=== PATIENT | male | born 1940 | race Caucasian/White ===

== ENCOUNTER 2018-03-22 14:54 | Inpatient (IN) | payer MEDICARE, OTHER ==
[~2018-03-22] VITALS: Ht 177.8 cm; Wt 85.8 kg
--- NOTE | ~2018-03-22 | HP ---
PATIENT: RUKHSANA JO MEDICAL RECORD: [id number] ACCOUNT: [id number] LOCATION:[address] : 42 ADMISSION DATE: 03/22/18 HISTORY AND PHYSICAL EXAMINATION REASON FOR ADMISSION: Cough, shortness of breath. HISTORY OF PRESENT ILLNESS: The patient is a 77-year-old male who was diagnosed in 1999 by [facility] with pulmonary sarcoidosis. 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 He has chronic respiratory failure, on chronic oxygen via TTO. He is followed by Dr. Stephens at [facility]. He states that when he walks on a good day, off oxygen, he will desaturate to 60%. On his oxygen at rest, it usually runs in the low 90s to 95%. His said he started coughing last night, dry cough. He stayed up all night coughing and was more short of breath today. They have an O2 sat monitor and did not see sat getting over 80%. He came to the office for that reason. He denied fever or productive sputum of off color nature. Interestingly, his had a URI this week and has been treated for asthmatic bronchitis. 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 Echo in 2016 showed an EF of 55% and left atrial size was 3.9 cm. History of gout and thrombocytopenia due to hypersplenism. History of proteinuria. 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 ALLERGIES: ADHESIVE TAPE AND ZITHROMAX. FAMILY HISTORY: Positive for hypertension. SOCIAL HISTORY: Lifelong nonsmoker, although he is exposed to his father who smoked. MEDICATIONS: Tamsulosin 0.4 mg p.o. at bedtime, Norvasc 5 mg p.o. daily, atenolol 50 mg p.o. daily, fenofibrate 145 mg p.o. daily, Xanax 0.25 mg p.o. at bedtime, Effexor XR 150 mg p.o. daily, omeprazole 20 mg p.o. b.i.d., vitamin D 2000 units p.o. daily, home O2 at 3-4 liters. REVIEW OF SYSTEMS: GENERAL: Chronic fatigue, worse in last 24 hours. No documented fever. HEENT: No recent new visual change, sinus congestion, or sore throat. RESPIRATORY: He has had dry cough throughout the night, was very difficult for him to sleep. He has been more dyspneic and sats have been in the 70s with ambulating and up to 80% in the office on 4 liters. He said he has chronic sputum production, which is clear and not changed. No hemoptysis. CARDIAC: No recent palpitations, exertional chest pain. He has chronic exertional dyspnea. No increased lower extremity edema. GI: No nausea, vomiting, change in stools, or blood per rectum. : Nocturia once nightly with slow stream. HISTORY AND PHYSICAL [id number] RUKHSANA JO ENDOCRINE: Denies polyuria, polydipsia, heat or cold intolerance. NEURO: No history of stroke, TIA, or vascular headaches. INTEGUMENT: No rash or itching. PSYCHIATRIC: Admits to depressed mood but is not suicidal or had suicidal ideations. LAB: Blood gas with pH of 7.428, CO2 of 38, pO2 of 90 on 36% FiO2 on a T-tube. Chemistry shows normal electrolytes. BUN and creatinine are 27 and 1.8, which is his chronic creatinine. Glucose 118 nonfasting. Calcium 9.4. CBC is currently pending. Chest x-ray shows bibasilar interstitial densities in the lower lobes with honeycombing, consistent with severe pulmonary fibrosis, COPD changes, and mediastinal granulomata. ASSESSMENT: 1. Community-acquired pneumonia, now febrile. 2. Chronic hypoxemia with pulmonary sarcoid and interstitial lung disease. 3. History of hyperparathyroidism, resolved. 4. Hypertension. 5. GERD. 6. History of depression. 7. BPH. 8. Renal stones. 9. Gout. 10. Osteoarthritis. 11. Anxiety. 12. Remote thrombocytopenia. 13. Squamous cell carcinoma of the ear. PLAN: The patient is admitted for pulmonary updrafts, broad-spectrum IV antibiotics. Culture blood and urine. Pulmonary consult with Dr. Frye, whom I have spoken to. TRANSINT:[id number] Voice Confirmation ID: [id number] DOCUMENT ID: [id number] SVEN PARRISH MD at 0730 CC: [id number] DICTATION DATE: 03/22/18 172 [address] CARRIER: 03/22/18 1829 ADM IN [place] [id number] [place] [id number]
--- NOTE | ~2018-03-22 | CN ---
PATIENT NAME:RUKHSANA MONTERO MEDICAL RECORD: [id number] : 42 LOCATION:[address] ADMIT DATE: 03/22/18 ACCOUNT: [id number] CONSULTING PHYSICIAN: KATTY MONTE MD REFERRING PHYSICIAN: TOÑO CRONIN MD DATE OF CONSULTATION: 03/22/2018 CONSULT REQUESTING PHYSICIAN: Toño Cronin MD REASON FOR CONSULTATION: Sarcoidosis, elqrl-iz-eoldnad hypoxic respiratory failure. HISTORY OF PRESENT ILLNESS: Mr. Montero is a 77-year-old very pleasant gentleman who has a history of sarcoidosis, diagnosed by the lung biopsy in 2001. The patient had tried some disease modifying agent initially and he was on prednisone for almost 10 years. He is followed at [facility]. According to the patient, he woke up yesterday with hoarseness, coughing, wheezing, and shortness of breath. He was seen at Dr. Cronin's office and his pulse ox was 75. He has tracheal catheter in place. He is also having some hoarseness. He has shortness of breath with mild exertion. REVIEW OF THE SYSTEMS: HEENT: Sinus congestion and hoarseness. RESPIRATORY: As in history of present illness. CARDIOVASCULAR: Negative. GI: Negative. : Negative. Other review of the systems is negative. PAST MEDICAL HISTORY: 1. Sarcoidosis diagnosed in 2001. 2. Pulmonary fibrosis. 3. Pulmonary hypertension secondary to pulmonary fibrosis. 4. Hyperparathyroidism. 5. History of hypercalcemia. 6. History of kidney stones. PAST SURGICAL HISTORY: 1. Parathyroidectomy. 2. Trach catheter placement. 3. History of open lung biopsy. ALLERGIES: HE IS ALLERGIC TO ZITHROMAX. MEDICATIONS: [employer] is reviewed. PERSONAL AND SOCIAL HISTORY: The patient is and living with his . He is retired from [employer]. He is nonsmoker, nondrinker. FAMILY HISTORY: Noncontributory. PHYSICAL EXAMINATION: GENERAL: Now, the patient is lying comfortably in bed. He is not in acute distress. CONSULT REPORT [id number] RUKHSANA MONTERO VITAL SIGNS: The blood pressure is 142/74, pulse is 74, respirations 16, temperature is 101.5, SpO2 is 97% on 4 liters nasal cannula. HEENT: Conjunctivae are pink. Sclerae are not icteric. NECK: Neck is supple. No JVD. CHEST: The chest excursion is minimal on both sides. There are wheezes on forceful expiration and bilateral crackles. HEART: Rhythm regular. Normal sound. No murmur. ABDOMEN: Abdomen is soft. Bowel sounds present. No hepatosplenomegaly. RECTAL: Deferred. EXTREMITIES: No cyanosis. No clubbing. No pedal edema. SKIN: The skin is warm. Normal turgor. CENTRAL NERVOUS SYSTEM: The patient is awake and alert. There is no obvious intracranial abnormality. The gait was not tested. Chest radiograph with increased interstitial marking bilaterally, especially in the lower lobe. There are also emphysematous changes. There are also extensive granulomatous changes throughout mediastinum and alcon. LAB DATA: CBC; WBC 10.5, hemoglobin 13.6, hematocrit 40.6, and platelet count 134. Chemistry; sodium 136, potassium 4.4, BUN is 27, creatinine 1.8. ABG; the pH is 7.42, pCO2 is 38.3, pO2 is 90, bicarb is 24.3. IMPRESSION: 1. Lhxws-ec-vypmbwk hypoxic respiratory failure. 2. Tracheobronchitis, possible pneumonia, consistent with CAP. 3. Stage IV sarcoidosis with pulmonary fibrosis. 4. Pulmonary hypertension group 3. 5. Laryngitis. 6. Chronic kidney disease. 7. History of parathyroidism, status post parathyroidectomy. RECOMMENDATION: 1. Continue vancomycin and meropenem. 2. Start on methylprednisolone IV stress dose as well as for wheezing and reactive airway disease. 3. Continue albuterol/ipratropium nebulizer. 4. I will add Brovana and budesonide nebulizer. 5. Supplemental oxygen to keep the SpO2 above 90. 6. Followup labs and chest radiograph. Dr. Cronin, thank you for involving me in the care of Mr. Montero. TRANSINT:[id number] Voice Confirmation ID: [id number] DOCUMENT ID: [id number] KATTY MONTE MD at 1208 CC: TOÑO CRONIN [id number] DICTATION DATE: 03/22/181846 LABORATORY CHEMICAL ASSISTANT: 03/22/181958 DIS IN 03/28/18 [facility] [address] [facility] [place] [address]
[2018-03-22 15:39] VITALS: BP 142/74; BMI 27.8
[2018-03-22] MEDS ORDERED: EFFEXOR XR150 MG PO (15:57)
[2018-03-22] MEDS ORDERED: FLOMAX0.4 MG PO (15:58)
[2018-03-22] MEDS ORDERED: TENORMIN50 MG PO (15:58)
[2018-03-22] MEDS ORDERED: XANAX0.25 MG PO (16:00)
[2018-03-22] MEDS ORDERED: TRICOR145 MG PO (16:01)
[2018-03-22] MEDS ORDERED: NORVASC5 MG PO (16:04)
[2018-03-22] MEDS ORDERED: OMEPRAZOLE PO (16:06)
[2018-03-22 16:15] VITALS: BP 142/74
[2018-03-22 16:49] LABS: BASOPHILS 0.3 % (0-2); EOSINOPHILS 3.2 % (0-7); HEMATOCRIT 40.6 % (42.0-54.0); HEMOGLOBIN 13.6 g/dL (13.5-17.5); IMMATURE GRANULOCYTES 0.8 % (0-5); LYMPHOCYTES 12.3 % (15-50); MCH 28.1 pg (26.0-34.0); MCHC 33.5 g/dL (31.0-37.0); MCV 83.9 fL (80.0-100.0); MEAN PLATELET VOLUME 9.3 fL (7.4-10.4); MONOCYTES 11.1 % (2-11); NEUTROPHILS 72.3 % (40-80); PLATELET COUNT 134 10x3/uL (130-400); RBC 4.84 10x6/uL (4.20-6.10); RDW 14.9 % (11.5-14.5); WBC 10.5 10x3/uL (4.8-10.8)
[2018-03-22 17:10] LABS: ANION GAP 13.8 mmol/L (8-16); CALCIUM 9.4 mg/dL (8.5-10.1); CARBON DIOXIDE 24.6 mmol/L (21.0-32.0); CREATININE - SERUM 1.8 mg/dL (0.6-1.3); POTASSIUM - SERUM 4.4 mmol/L (3.5-5.1)
[2018-03-22 18:42] LABS: APPEARANCE CLEAR (CLEAR); BILIRUBIN NEGATIVE (NEGATIVE); COLOR YELLOW (YELLOW); GLUCOSE NEGATIVE (NEGATIVE); KETONE NEGATIVE (NEGATIVE); NITRITE NEGATIVE (NEGATIVE); PROTEIN TRACE mg/dL (NEGATIVE); UROBILINOGEN NORMAL (NORMAL)
[2018-03-22 20:00] VITALS: BP 134/57
[2018-03-23] VITALS: BP 143/75
[2018-03-23 04:00] VITALS: BP 112/50; BP 157/74
[2018-03-23 05:54] LABS: BASOPHILS 0.1 % (0-2); EOSINOPHILS 0.1 % (0-7); HEMOGLOBIN 13.3 g/dL (13.5-17.5); IMMATURE GRANULOCYTES 0.7 % (0-5); LYMPHOCYTES 7.9 % (15-50); MCH 28.1 pg (26.0-34.0); MCHC 33.3 g/dL (31.0-37.0); MCV 84.4 fL (80.0-100.0); MEAN PLATELET VOLUME 9.2 fL (7.4-10.4); MONOCYTES 3.8 % (2-11); NEUTROPHILS 87.4 % (40-80); PLATELET COUNT 131 10x3/uL (130-400); RBC 4.74 10x6/uL (4.20-6.10); RDW 14.8 % (11.5-14.5); WBC 9.6 10x3/uL (4.8-10.8)
[2018-03-23 06:17] LABS: ANION GAP 13.5 mmol/L (8-16); CALCIUM 9.4 mg/dL (8.5-10.1); CARBON DIOXIDE 26.9 mmol/L (21.0-32.0); POTASSIUM - SERUM 4.4 mmol/L (3.5-5.1)
[2018-03-23 12:36] VITALS: BP 136/61
[2018-03-23 15:38] VITALS: BP 126/65
[2018-03-23 21:12] VITALS: BP 141/79
[2018-03-24 01:46] VITALS: BP 120/53
[2018-03-24 05:05] VITALS: BP 112/61
[2018-03-24 06:28] LABS: BASOPHILS 0.1 % (0-2); EOSINOPHILS 0 % (0-7); HEMATOCRIT 36.8 % (42.0-54.0); HEMOGLOBIN 11.8 g/dL (13.5-17.5); IMMATURE GRANULOCYTES 0.9 % (0-5); MCH 27.2 pg (26.0-34.0); MCHC 32.1 g/dL (31.0-37.0); MCV 84.8 fL (80.0-100.0); MEAN PLATELET VOLUME 9.6 fL (7.4-10.4); MONOCYTES 4.2 % (2-11); NEUTROPHILS 89.8 % (40-80); PLATELET COUNT 123 10x3/uL (130-400); RBC 4.34 10x6/uL (4.20-6.10); WBC 7.8 10x3/uL (4.8-10.8)
[2018-03-24 06:58] LABS: ANION GAP 13.6 mmol/L (8-16); CALCIUM 9.4 mg/dL (8.5-10.1); CARBON DIOXIDE 25.7 mmol/L (21.0-32.0); POTASSIUM - SERUM 4.3 mmol/L (3.5-5.1)
[2018-03-24 08:23] VITALS: BP 152/73
[2018-03-24 11:48] VITALS: BP 131/58
[2018-03-24 17:25] VITALS: BP 154/88
[2018-03-24 20:55] VITALS: BP 137/67
[2018-03-25 00:20] VITALS: BP 130/63
[2018-03-25 04:49] VITALS: BP 139/79
[2018-03-25 06:24] LABS: BASOPHILS 0.1 % (0-2); EOSINOPHILS 0.1 % (0-7); HEMATOCRIT 36.3 % (42.0-54.0); HEMOGLOBIN 11.7 g/dL (13.5-17.5); IMMATURE GRANULOCYTES 1.3 % (0-5); LYMPHOCYTES 13.8 % (15-50); MCH 27.5 pg (26.0-34.0); MCHC 32.2 g/dL (31.0-37.0); MCV 85.2 fL (80.0-100.0); MEAN PLATELET VOLUME 9.9 fL (7.4-10.4); MONOCYTES 8.6 % (2-11); NEUTROPHILS 76.1 % (40-80); PLATELET COUNT 137 10x3/uL (130-400); RBC 4.26 10x6/uL (4.20-6.10); RDW 15.3 % (11.5-14.5); WBC 7.9 10x3/uL (4.8-10.8)
[2018-03-25 06:54] LABS: ANION GAP 12.9 mmol/L (8-16); CALCIUM 8.8 mg/dL (8.5-10.1); CARBON DIOXIDE 27.1 mmol/L (21.0-32.0); CREATININE - SERUM 1.8 mg/dL (0.6-1.3)
[2018-03-25 08:18] VITALS: BP 119/63
[2018-03-25 11:20] VITALS: BP 144/75
[2018-03-25 14:45] VITALS: Ht 177.8 cm; Wt 85.8 kg
[2018-03-25 15:09] VITALS: BP 137/71
[2018-03-25 20:00] VITALS: BP 136/76
[2018-03-26] VITALS: BP 130/70
[2018-03-26 04:00] VITALS: BP 133/79
[2018-03-26 06:24] LABS: BASOPHILS 0.4 % (0-2); EOSINOPHILS 0.1 % (0-7); HEMATOCRIT 38.8 % (42.0-54.0); HEMOGLOBIN 12.6 g/dL (13.5-17.5); IMMATURE GRANULOCYTES 3.6 % (0-5); LYMPHOCYTES 9.5 % (15-50); MCH 27.5 pg (26.0-34.0); MCHC 32.5 g/dL (31.0-37.0); MCV 84.5 fL (80.0-100.0); MEAN PLATELET VOLUME 9.6 fL (7.4-10.4); MONOCYTES 7.3 % (2-11); NEUTROPHILS 79.1 % (40-80); PLATELET COUNT 147 10x3/uL (130-400); RBC 4.59 10x6/uL (4.20-6.10)
[2018-03-26 06:44] LABS: ANION GAP 11.2 mmol/L (8-16); CREATININE - SERUM 1.6 mg/dL (0.6-1.3); POTASSIUM - SERUM 4.2 mmol/L (3.5-5.1)
[2018-03-26 08:36] VITALS: BP 158/76
[2018-03-26 11:34] VITALS: BP 132/65
[2018-03-26 15:42] VITALS: BP 126/75
[2018-03-26 19:00] VITALS: BP 115/73
[2018-03-27] VITALS: BP 132/74
[2018-03-27 03:51] VITALS: BP 119/57
[2018-03-27 06:07] LABS: BASOPHILS 0.5 % (0-2); EOSINOPHILS 5.3 % (0-7); HEMATOCRIT 39.5 % (42.0-54.0); HEMOGLOBIN 12.8 g/dL (13.5-17.5); IMMATURE GRANULOCYTES 3.9 % (0-5); MCH 27.6 pg (26.0-34.0); MCHC 32.4 g/dL (31.0-37.0); MCV 85.1 fL (80.0-100.0); MONOCYTES 6.5 % (2-11); NEUTROPHILS 67.8 % (40-80); PLATELET COUNT 144 10x3/uL (130-400); RBC 4.64 10x6/uL (4.20-6.10); RDW 15.1 % (11.5-14.5); WBC 8.2 10x3/uL (4.8-10.8)
[2018-03-27 06:29] LABS: ANION GAP 10.4 mmol/L (8-16); CALCIUM 8.8 mg/dL (8.5-10.1); CARBON DIOXIDE 27.6 mmol/L (21.0-32.0); CREATININE - SERUM 1.7 mg/dL (0.6-1.3); VANCOMYCIN - TROUGH 8.5 ug/mL (10.0-20.0)
[2018-03-27 07:51] VITALS: BP 137/71
[2018-03-27 11:21] VITALS: BP 129/69
[2018-03-27 15:07] VITALS: BP 121/75
[2018-03-27 20:00] VITALS: BP 139/71
[2018-03-28] VITALS: BP 121/56
[2018-03-28 04:00] VITALS: BP 136/70
[2018-03-28] MEDS ORDERED: MUCINEX600 MG PO (07:36)
[2018-03-28] MEDS ORDERED: AUGMENTIN 500-11 TA1 PO (07:38)
[2018-03-28] MEDS ORDERED: IPRAT-ALBUT 0.5-3 ML UPD (07:39)
[2018-03-28] MEDS ORDERED: PREDNISONE20 MG PO (07:43)
[2018-03-28 09:14] VITALS: BP 160/78
[2018-03-28 11:40] VITALS: BP 156/75
== END 2018-03-28 13:10 | disposition home or self-care (01) | DRG 193 ==
LOC: D.M2 14:54
PROVIDERS: Family Medicine; Internal Medicine Pulmonary Disease
DX: J18.9 Pneumonia, unspecified organism (principal); J96.21 Acute and chronic respiratory failure with hypoxia; D86.0 Sarcoidosis of lung; E78.5 Hyperlipidemia, unspecified; F41.9 Anxiety disorder, unspecified; J84.10 Pulmonary fibrosis, unspecified; I12.9 Hypertensive chronic kidney disease with stage 1 through stage 4 chronic kidney disease, or unspecified chronic kidney disease; N18.9 Chronic kidney disease, unspecified; K21.9 Gastro-esophageal reflux disease without esophagitis; N40.0 Benign prostatic hyperplasia without lower urinary tract symptoms; I27.20 Pulmonary hypertension, unspecified; J04.0 Acute laryngitis; M10.9 Gout, unspecified; M19.90 Unspecified osteoarthritis, unspecified site; N28.9 Disorder of kidney and ureter, unspecified

== ENCOUNTER → 2020-01-15 15:16 | Outpatient (CLI) | payer MEDICARE ==
[2018-03-25 14:45] VITALS: BMI 27.5
[2020-01-15 15:42] LABS: BILIRUBIN NEGATIVE (NEGATIVE); GLUCOSE NEGATIVE (NEGATIVE); KETONE NEGATIVE (NEGATIVE); NITRITE NEGATIVE (NEGATIVE); UROBILINOGEN NORMAL (NORMAL)
[2020-01-15 16:04] LABS: ALBUMIN 3.3 g/dL (3.4-5.0); ANION GAP 15.9 mmol/L (8-16); BILIRUBIN - TOTAL 0.76 mg/dL (0.2-1.3); CARBON DIOXIDE 26.7 mmol/L (21.0-32.0); CREATININE - SERUM 1.4 mg/dL (0.6-1.3); POTASSIUM - SERUM 4.6 mmol/L (3.5-5.1); PROTEIN - SERUM 6.2 g/dL (6.4-8.2); THYROID STIMULATING HORMONE 1.97 uIU/mL (0.36-3.74)
== END | disposition home or self-care (01) ==
LOC: D.LABREF 15:16
PROVIDERS: ATTEND Family Medicine
DX: D86.0 Sarcoidosis of lung (principal); J84.17 Other interstitial pulmonary diseases with fibrosis in diseases classified elsewhere; J98.4 Other disorders of lung

== ENCOUNTER → 2020-01-18 19:34 | Outpatient (CLI) | payer MEDICARE, BC ==
[2018-03-25 14:45] VITALS: BMI 27.5
[~2020-01-18 19:34] MED LIST: AUGMENTIN 500-11 TA1 PO; EFFEXOR XR150 MG PO; FLOMAX0.4 MG PO; IPRAT-ALBUT 0.5-3 ML UPD; MUCINEX600 MG PO; NORVASC5 MG PO; OMEPRAZOLE PO; PREDNISONE20 MG PO; TENORMIN50 MG PO; TRICOR145 MG PO; XANAX0.25 MG PO
[2020-01-18 19:51] LABS: BASOPHILS 0.2 % (0-2); EOSINOPHILS 2.5 % (0-7); HEMATOCRIT 53.1 % (42.0-54.0); HEMOGLOBIN 17.3 g/dL (13.5-17.5); IMMATURE GRANULOCYTES 1.2 % (0-5); LYMPHOCYTES 14.1 % (15-50); MCHC 32.6 g/dL (31.0-37.0); MEAN PLATELET VOLUME 10.4 fL (7.4-10.4); MONOCYTES 6.4 % (2-11); NEUTROPHILS 75.6 % (40-80); PLATELET COUNT 123 10x3/uL (130-400); RBC 5.77 10x6/uL (4.20-6.10); RDW 16.2 % (11.5-14.5); WBC 9.9 10x3/uL (4.8-10.8)
== END | disposition home or self-care (01) ==
LOC: D.LABREF 19:34
PROVIDERS: ATTEND Family Medicine
DX: D86.9 Sarcoidosis, unspecified (principal)